=== PATIENT | female | born 1955 ===

== ENCOUNTER 2016-06-08 13:50 | Emergency (ER) | payer SELFPAY ==
[2016-06-08 14:01] VITALS: BP 168/105
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
[2016-06-08 14:45] LABS: Hematocrit 38.9 % (30.3-42.9); Hemoglobin 12.9 gm/dl (10.1-14.3); Mean Corpuscular HGB Conc 33 % (30-34); Mean Corpuscular Hemoglobin 28 pg (28-32); Mean Corpuscular Volume 86 fl (79-97); Platelet Count 205 K/mm3 (140-440); Red Blood Count 4.54 M/mm3 (3.65-5.03); Red Cell Distribution Width 13.5 % (13.2-15.2); White Blood Count 6.2 K/mm3 (4.5-11.0)
[2016-06-08 14:53] LABS: BUN/Creatinine Ratio 15.71; Blood Urea Nitrogen 11 mg/dL (7-17); Calcium 9.3 mg/dL (8.4-10.2); Carbon Dioxide 29 mmol/L (22-30); Chloride 100.5 mmol/L (98-107); Glucose 87 mg/dL (65-100); Potassium 4.2 mmol/L (3.6-5.0); Sodium 141 mmol/L (137-145)
[2016-06-08 15:17] LABS: Anion Gap 16 mmol/L
--- NOTE | 2016-06-09 05:54 | ED Elopement Review ---
ED Pt Elopement review - Results review Lab results: Laboratory Tests 06/08/16 06/08/16 14:24 14:24 WBC 6.2 RBC 4.54 Hgb 12.9 Hct 38.9 MCV 86 MCH 28 MCHC 33 RDW 13.5 Plt Count 205 Sodium 141 Potassium 4.2 Chloride 100.5 Carbon Dioxide 29 Anion Gap 16 BUN 11 Creatinine 0.7 Estimated GFR > 60 BUN/Creatinine Ratio 15.71 Glucose 87 Calcium 9.3 - Call Back decision Pt Call Back Decision: No action required
== END 2016-06-08 14:30 | disposition left against medical advice (07) ==
LOC: ED 13:50
DX: R07.9 Chest pain, unspecified (principal); R51 Headache; R05 Cough; Z53.21 Procedure and treatment not carried out due to patient leaving prior to being seen by health care provider
CPT/HCPCS: 36415; 80048; 85027

== ENCOUNTER 2016-06-09 07:57 | Emergency (ER) | payer SELFPAY ==
[2016-06-09 08:11] VITALS: BP 157/88
== END 2016-06-09 08:10 | disposition left against medical advice (07) ==
LOC: ED 07:57
DX: R51 Headache (principal); J34.89 Other specified disorders of nose and nasal sinuses; R05 Cough; Z53.21 Procedure and treatment not carried out due to patient leaving prior to being seen by health care provider